=== PATIENT | female | born 1990 | race Two or more races ===

== ENCOUNTER 2023-03-20 09:48 | Outpatient (CLI) | payer OTHER | END 2023-03-20 09:52 | disposition home or self-care (01) | LOC: PRENATAL 09:48 | PROVIDERS: ATTEND Obstetrics & Gynecology Maternal & Fetal Medicine | DX: O35.9XX0 Maternal care for (suspected) fetal abnormality and damage, unspecified, not applicable or unspecified (principal); O35.3XX0 Maternal care for (suspected) damage to fetus from viral disease in mother, not applicable or unspecified; O09.219 Supervision of pregnancy with history of pre-term labor, unspecified trimester; O44.00 Complete placenta previa NOS or without hemorrhage, unspecified trimester; Z3A.19 19 weeks gestation of pregnancy ==

== ENCOUNTER 2023-05-20 14:01 | Outpatient (CLI) | payer OTHER | END 2023-05-20 14:04 | disposition home or self-care (01) | LOC: PRENATAL 14:01 | PROVIDERS: ATTEND Obstetrics & Gynecology Maternal & Fetal Medicine | DX: O26.849 Uterine size-date discrepancy, unspecified trimester (principal); O09.219 Supervision of pregnancy with history of pre-term labor, unspecified trimester; Z3A.28 28 weeks gestation of pregnancy ==

== ENCOUNTER 2023-06-29 10:02 | Outpatient (CLI) | payer OTHER | END 2023-06-29 10:03 | disposition home or self-care (01) | LOC: PRENATAL 10:02 | PROVIDERS: ATTEND Obstetrics & Gynecology Maternal & Fetal Medicine | DX: O26.849 Uterine size-date discrepancy, unspecified trimester (principal); O36.8199 Decreased fetal movements, unspecified trimester, other fetus; O09.219 Supervision of pregnancy with history of pre-term labor, unspecified trimester; Z3A.34 34 weeks gestation of pregnancy ==